=== PATIENT | female | born 1985 | race Caucasian/White ===

== ENCOUNTER 2017-09-03 15:55 | Emergency (ER) | payer MEDICAID ==
[~2017-09-03] VITALS: Ht 152.4 cm; Wt 68.2 kg
[~2017-09-03 15:55] MED LIST: ONDA4TAB12 PO; POTA-82 PO
[2017-09-03 16:44] VITALS: BP 131/70
[2017-09-03] MEDS ORDERED: rabies immune globulin/PF 150 unit/ml inj IMVAC STA (17:11)
[2017-09-03] MEDS ORDERED: rabies vaccine (PCEC)/PF 2.5 unit kit IMVAC ONE (17:15)
== END 2017-09-03 19:21 | disposition home or self-care (01) ==
LOC: ER 15:56
DX: Z23 Encounter for immunization (principal); I10 Essential (primary) hypertension; G89.29 Other chronic pain; G43.909 Migraine, unspecified, not intractable, without status migrainosus; Z79.899 Other long term (current) drug therapy
CPT/HCPCS: 90375; 90471; 90675; 96372; 99284

== ENCOUNTER 2017-09-06 17:33 | Emergency (ER) | payer MEDICAID ==
[~2017-09-06] VITALS: Ht 154.9 cm; Wt 68.0 kg
[2017-09-06 18:06] VITALS: BP 134/77
[2017-09-06] MEDS ORDERED: rabies vaccine (PCEC)/PF 2.5 unit kit IMVAC ONE (20:05)
== END 2017-09-06 21:23 | disposition home or self-care (01) ==
LOC: ER 17:33
DX: Z23 Encounter for immunization (principal); I10 Essential (primary) hypertension; G89.29 Other chronic pain; G43.909 Migraine, unspecified, not intractable, without status migrainosus; Z79.899 Other long term (current) drug therapy
CPT/HCPCS: 90471; 90675; 99283

== ENCOUNTER 2017-09-10 14:47 | Emergency (ER) | payer MEDICAID ==
[~2017-09-10] VITALS: Ht 152.4 cm; Wt 68.0 kg
[2017-09-10] MEDS ORDERED: rabies vaccine (PCEC)/PF 2.5 unit kit IMVAC ONE (15:05)
[2017-09-10 15:15] VITALS: BP 122/77
== END 2017-09-10 16:26 | disposition home or self-care (01) ==
LOC: ER 14:48
DX: Z23 Encounter for immunization (principal); I10 Essential (primary) hypertension; G43.909 Migraine, unspecified, not intractable, without status migrainosus
CPT/HCPCS: 90471; 90675; 99283

== ENCOUNTER 2018-03-09 12:51 | Emergency (ER) | payer MEDICAID ==
[~2018-03-09] VITALS: Ht 154.9 cm; Wt 65.9 kg
[2018-03-09 13:06] VITALS: BP 100/65
[2018-03-09] MEDS ORDERED: ACET-3068 PO (14:36)
[2018-03-09] MEDS ORDERED: PENI500T2 PO (14:36)
== END 2018-03-09 14:47 | disposition home or self-care (01) ==
LOC: ER 12:52
DX: K02.9 Dental caries, unspecified (principal); I10 Essential (primary) hypertension; G43.909 Migraine, unspecified, not intractable, without status migrainosus; G89.29 Other chronic pain; Z79.899 Other long term (current) drug therapy
CPT/HCPCS: 99283

== ENCOUNTER 2018-05-17 18:19 | Emergency (ER) | payer MEDICAID ==
[~2018-05-17] VITALS: Ht 152.4 cm; Wt 63.0 kg
[2018-05-17 18:33] VITALS: BP 135/94
[2018-05-17] MEDS ORDERED: BUPIVAcaine 0.5% W/EPI /PF 30ml vial IJ ONE (20:20)
[2018-05-17] MEDS ORDERED: BUPIVAcaine 0.5% inj/PF 30 ml vial IJ ONE (20:30)
[2018-05-17] MEDS ORDERED: HYDR-4383 PO (21:06)
[2018-05-17] MEDS ORDERED: AMOX-422 PO (21:07)
== END 2018-05-17 21:19 | disposition home or self-care (01) ==
LOC: ER 18:19
DX: K04.7 Periapical abscess without sinus (principal); G43.909 Migraine, unspecified, not intractable, without status migrainosus; I10 Essential (primary) hypertension; G89.29 Other chronic pain; Z79.899 Other long term (current) drug therapy
CPT/HCPCS: 64400; 99284; J3490

== ENCOUNTER 2022-11-08 14:19 | Emergency (ER) | payer MEDICAID ==
[~2022-11-08] VITALS: Ht 152.4 cm; Wt 60.0 kg
[~2022-11-08 14:19] MED LIST changes: +HYDR-4383 PO; +POTA-366 PO; -POTA-82 PO
[2022-11-08 15:13] VITALS: BP 161/97
[2022-11-08] MEDS ORDERED: CEFD300C21 PO (15:46)
[2022-11-08 15:48] LABS: COLOR,URINE ORANGE (Yellow); UA COLLECTION TYPE CLN CATCH MIDSTREAM
[2022-11-08 15:49] LABS: CLARITY,URINE SLIGHTLY CLOUDY (Clear)
[2022-11-08 15:52] LABS: URINE HCG NEGATIVE (NEG)
[2022-11-08 16:05] LABS: SQUAMOUS EPITHELIAL CELL,UR FEW /LPF (FEW)
[2022-11-08 16:06] LABS: BACTERIA,URINE 4+ /HPF (Neg); RBC,URINE 0-2 /HPF (0-2); WBC,URINE 0-4 /HPF (0-4)
== END 2022-11-08 16:10 | disposition home or self-care (01) ==
LOC: ER 14:20
DX: N39.0 Urinary tract infection, site not specified (principal); G43.909 Migraine, unspecified, not intractable, without status migrainosus; I10 Essential (primary) hypertension; G89.29 Other chronic pain; M54.9 Dorsalgia, unspecified; Z56.0 Unemployment, unspecified; Z79.899 Other long term (current) drug therapy
CPT/HCPCS: 81001; 81025; 87077; 87088; 87186; 99283